=== PATIENT | female | born 1990 | race African-American/Black ===

== ENCOUNTER → 2020-07-08 11:15 | Outpatient (BNVA) | payer BC, SELFPAY | PROVIDERS: PCP Family Medicine; Referring Provider Family Medicine; Visit Provider Internal Medicine Rheumatology | DX: M25.541 Pain in joints of right hand (principal); M25.542 Pain in joints of left hand; M79.7 Fibromyalgia; Z79.899 Other long term (current) drug therapy; D72.9 Disorder of white blood cells, unspecified; G47.9 Sleep disorder, unspecified; M70.62 Trochanteric bursitis, left hip; Y93.9 Activity, unspecified | CPT/HCPCS: 99204 ==